=== PATIENT | female | born 2000 | race Caucasian/White ===

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

== ENCOUNTER 2019-05-24 17:21 | Emergency (ER) | payer SELFPAY ==
[~2019-05-24] VITALS: Ht 162.5 cm; Wt 54.4 kg
[~2019-05-24 17:21] MED LIST changes: +COLACE100 MG PO; +MIRALAX119 GM PO
[2019-05-24 18:16] LABS: CLARITY CLOUDY (CLEAR); COLOR YELLOW (YELLOW); KETONE 3+ (NEGATIVE); SPECIFIC GRAVITY 1.025 (1.005-1.030)
[2019-05-24 18:17] LABS: BILIRUBIN NEGATIVE (NEGATIVE); BLOOD TRACE-LYSED (NEGATIVE); GLUCOSE NEGATIVE (NEGATIVE); LEUKO ESTERASE NEGATIVE (NEGATIVE); NITRITE POSITIVE (NEGATIVE); UROBILINOGEN 0.2 E.U./dl (0.2-1.0)
[2019-05-24 18:18] LABS: BACTERIA 3+; RBC 0-2 rbc/hpf (0-2)
[2019-05-24 18:21] LABS: HEMATOCRIT 38.6 % (37.0-47.0); HEMOGLOBIN 12.9 g/dl (12.0-16.0); MEAN CORPUSCULAR HGB 30.1 pg (27.0-31.0); MEAN CORPUSCULAR HGB CONC 33.4 g/dl (33.0-37.0); MEAN PLATELET VOLUME 12.5 fl (9.6-12.3); RED BLOOD COUNT 4.29 10*6/uL (4.10-5.10); RED CELL DISTRI WIDTH 11.9 % (0-14.5); WHITE BLOOD COUNT 2.1 10*3/uL (4.8-10.8)
[2019-05-24 18:35] LABS: ALKALINE PHOSPHATASE 62 U/L (45-117); BUN 13 mg/dl (7-24); CHLORIDE 106 mmol/L (98-107); POTASSIUM 3.4 mmol/L (3.5-5.1); SGOT/AST 38 IU/L (3-35); SGPT/ALT 26 U/L (12-78); SODIUM 139 mmol/L (136-145); TOTAL PROTEIN 6.9 gm/dL (6.4-8.2)
[2019-05-24 18:42] LABS: PLATELET COUNT AUTOMATED 90 10*3/uL (130-400)
[2019-05-24] MEDS ORDERED: SEPTDS PO (18:44)
[2019-05-24 18:50] LABS: PLATELET SUFFICIENCY LOW (NORMAL); TOTAL CELLS COUNTED 100 #CELLS
== END 2019-05-24 20:11 | disposition home or self-care (01) ==
LOC: ED 17:21
PROVIDERS: Nurse Practitioner
DX: J10.1 Influenza due to other identified influenza virus with other respiratory manifestations (principal); N39.0 Urinary tract infection, site not specified; J45.909 Unspecified asthma, uncomplicated; Z79.899 Other long term (current) drug therapy

== ENCOUNTER 2023-05-31 12:29 | Emergency (ER) | payer SELFPAY ==
[~2023-05-31] VITALS: Ht 154.9 cm; Wt 56.7 kg
[~2023-05-31 12:29] MED LIST changes: +SEPTDS PO
[2023-05-31] MEDS ORDERED: IBUPROFEN 800 MG TAB PO ONE (13:40)
== END 2023-05-31 15:22 | disposition home or self-care (01) ==
LOC: ED 12:29
DX: S80.01XA Contusion of right knee, initial encounter (principal); J45.909 Unspecified asthma, uncomplicated; X58.XXXA Exposure to other specified factors, initial encounter; Y93.89 Activity, other specified; Y92.89 Other specified places as the place of occurrence of the external cause; Y99.8 Other external cause status

== ENCOUNTER 2023-06-28 23:04 | Emergency (ER) | payer BC ==
[~2023-06-28] VITALS: Ht 154.9 cm; Wt 55.8 kg
[2023-06-28] MEDS ORDERED: KEFLEX 500 MG E2 CAP PO (23:16)
[2023-06-28] MEDS ORDERED: Ondansetron Hydrochloride 4 MG TAB SL ONE (23:25)
[2023-06-28 23:36] LABS: BASO # 0.1 10*3/uL (0.0-0.1); BASO % 1.1 % (0.0-1.0); EOS # 0.1 10*3/uL (0.0-0.4); EOS % 0.7 % (1.0-4.0); HEMATOCRIT 42.9 % (37.0-47.0); LYMPH # 2.4 10*3/uL (1.3-4.4); LYMPH % 32.4 % (27.0-41.0); MEAN CELL VOLUME 92.5 fl (81.0-99.0); MEAN CORPUSCULAR HGB 31.3 pg (27.0-31.0); MEAN CORPUSCULAR HGB CONC 33.8 g/dl (33.0-37.0); MEAN PLATELET VOLUME 11.2 fl (9.6-12.3); MONO # 0.5 10*3/uL (0.1-1.0); MONO % 6.3 % (3.0-9.0); NEUT # 4.3 10*3/uL (2.3-7.9); NEUT % 59.2 % (47.0-73.0); PLATELET COUNT AUTOMATED 253 10*3/uL (130-400); RED BLOOD COUNT 4.64 10*6/uL (4.10-5.10); RED CELL DISTRI WIDTH 11.8 % (0-14.5); WHITE BLOOD COUNT 7.3 10*3/uL (4.8-10.8)
[2023-06-28 23:59] LABS: ALKALINE PHOSPHATASE 83 U/L (46-116); BUN 10 mg/dl (9-23); CHLORIDE 105 mmol/L (98-107); LIPASE 41 U/L (12-53); POTASSIUM 3.3 mmol/L (3.4-5.1); SGPT/ALT 15 U/L (5-49); TOTAL PROTEIN 7.1 gm/dL (6.0-8.0)
[2023-06-29] MEDS ORDERED: SODIUM CHLORIDE 0.9% 1,000 ML IV ONE (01:35)
[2023-06-29] MEDS ORDERED: Ondansetron Hydrochloride 4 MG/2 ML VIAL IV ONE (01:35)
[2023-06-29] MEDS ORDERED: Ketorolac Tromethamine 30 MG/ML VIAL IV ONE (01:35)
[2023-06-29] MEDS ORDERED: ONDANSETRON4 MG SL (02:46)
== END 2023-06-29 02:59 | disposition home or self-care (01) ==
LOC: ED 23:04
PROVIDERS: Internal Medicine
DX: R11.2 Nausea with vomiting, unspecified (principal); E87.6 Hypokalemia; R74.8 Abnormal levels of other serum enzymes; J45.909 Unspecified asthma, uncomplicated

== ENCOUNTER 2023-12-15 10:50 | Emergency (ER) | payer BC ==
[~2023-12-15 10:50] MED LIST changes: +KEFLEX 500 MG E2 CAP PO; +ONDANSETRON4 MG SL
[2023-12-15 11:38] LABS: BASO % 0.4 % (0.0-1.0); HEMATOCRIT 41.2 % (37.0-47.0); LYMPH # 1.1 10*3/uL (1.3-4.4); MEAN CELL VOLUME 92.8 fl (81.0-99.0); MEAN CORPUSCULAR HGB 30.9 pg (27.0-31.0); MEAN CORPUSCULAR HGB CONC 33.3 g/dl (33.0-37.0); MEAN PLATELET VOLUME 11.1 fl (9.6-12.3); MONO # 0.4 10*3/uL (0.1-1.0); MONO % 5.2 % (3.0-9.0); NEUT % 80.1 % (47.0-73.0); PLATELET COUNT AUTOMATED 226 10*3/uL (130-400); RED BLOOD COUNT 4.44 10*6/uL (4.10-5.10); RED CELL DISTRI WIDTH 11.8 % (0-14.5); WHITE BLOOD COUNT 7.5 10*3/uL (4.8-10.8)
[2023-12-15 12:03] LABS: BILIRUBIN Negative (Negative); BLOOD Negative (Negative); CLARITY Clear (Clear); COLOR Yellow (Yellow); GLUCOSE Negative (Negative); KETONE Negative (Negative); LEUKO ESTERASE Negative (Negative); NITRITE Negative (Negative); SPECIFIC GRAVITY 1.015 (1.001-1.030)
[2023-12-15 12:05] LABS: BUN 7 mg/dl (9-23); CHLORIDE 107 mmol/L (98-107); CPK 111 U/L (34-171); ETHYL ALCOHOL 42.8 mg/dl (<3); POTASSIUM 3.2 mmol/L (3.4-5.1)
[2023-12-15 12:10] LABS: URINE AMPHETAMINES Negative (1000ng/ml); URINE BARBITURATES Negative (200ng/ml); URINE BENZODIAZEPINES Negative (200ng/ml); URINE CANNABINOIDS (THC) Negative (50ng/ml); URINE COCAINE Positive (300ng/ml); URINE METHADONE Negative (300ng/ml); URINE OPIATES Negative (300ng/ml); URINE PHENCYCLIDINE Negative (25ng/ml)
[2023-12-15] MEDS ORDERED: POTASSIUM CHLORIDE 20 MEQ TAB PO ONE (14:20)
== END 2023-12-15 20:17 | disposition short-term general hospital (02) ==
LOC: ED 10:50
PROVIDERS: Emergency Medicine
DX: F43.21 Adjustment disorder with depressed mood (principal); E87.6 Hypokalemia; J45.909 Unspecified asthma, uncomplicated; F10.10 Alcohol abuse, uncomplicated; F14.90 Cocaine use, unspecified, uncomplicated; Z79.899 Other long term (current) drug therapy